=== PATIENT | female | born 1960 | race Caucasian/White ===

== ENCOUNTER → 2017-03-02 | Outpatient (CLI) | payer BC | LOC: KOH-I 11:30 | DX: M25.532 Pain in left wrist (principal); M19.032 Primary osteoarthritis, left wrist | CPT/HCPCS: 73110 ==

== ENCOUNTER → 2020-12-12 | Outpatient (CLI) | payer BC ==
[~2020-12-12] MED LIST: ACIDOPHILUS1 EAC4 PO; BENADRYL PO; CENTRUM SILVER1 EAC1 PO; FISH PO; FLAX PO; HAIR/SKIN/NAIL PO; HYDROCHLOROTH12.5 MG PO; IBUPROFEN800 MG PO; LISINOPRIL5 MG PO; LOVASTATIN20 MG PO; SODIUM FLUORIDE PO; [UNRECOGNIZED DRUG - OTHER] PO
[2020-12-12 05:41] LABS: HEMOGLOBIN 14.5 gm/dl (12.3-15.3); RED BLOOD COUNT 4.89 M/UL (4.00-5.10); WHITE BLOOD COUNT 6.9 K/UL (4.5-11.0)
[2020-12-12 06:06] LABS: BUN/CREATININE RATIO 25 (0-10)
== END ==
LOC: LAB 05:23
DX: R53.83 Other fatigue (principal); I10 Essential (primary) hypertension; E78.2 Mixed hyperlipidemia
CPT/HCPCS: 36415; 80053; 80061; 82607; 84443; 85025; 85027

== ENCOUNTER → 2021-03-18 | Day surgery (SDC) | payer BC | END | disposition home or self-care (01) | LOC: OR 06:16 | DX: Z12.11 Encounter for screening for malignant neoplasm of colon (principal); D12.3 Benign neoplasm of transverse colon; K64.0 First degree hemorrhoids; K64.4 Residual hemorrhoidal skin tags; I10 Essential (primary) hypertension; E66.8 Other obesity; Z86.010 Personal history of colon polyps; Z68.38 Body mass index [BMI] 38.0-38.9, adult; Z79.1 Long term (current) use of non-steroidal anti-inflammatories (NSAID); Z79.899 Other long term (current) drug therapy | CPT/HCPCS: J2704; J7040 ==

== ENCOUNTER → 2021-06-10 | Outpatient (CLI) | payer BC ==
[2021-06-10 05:53] LABS: HEMOGLOBIN 14.5 gm/dl (12.3-15.3); RED BLOOD COUNT 4.86 M/UL (4.00-5.10); WHITE BLOOD COUNT 5.6 K/UL (4.5-11.0)
[2021-06-10 06:20] LABS: BUN/CREATININE RATIO 22 (0-10)
[2021-06-11 07:11] LABS: VITAMIN D, 25-HYDROXY 34.7 ng/mL (30.0-100.0)
[2021-06-11 08:14] LABS: ANTISTREPTOLYSIN O AB 70.6 IU/mL (0.0-200.0); RHEUMATOID ARTHRITIS FACTOR <10.0 IU/mL (0.0-13.9)
== END ==
LOC: LAB 05:36
PROVIDERS: Physician Assistant Medical
DX: E78.2 Mixed hyperlipidemia (principal); I10 Essential (primary) hypertension; M15.0 Primary generalized (osteo)arthritis; M25.50 Pain in unspecified joint; R53.83 Other fatigue
CPT/HCPCS: 80053; 80061; 84550; 85027; 85652; 86038; 86060; 86140; 86431

== ENCOUNTER → 2021-09-17 | Outpatient (CLI) | payer BC | LOC: MAMO 07:40 | DX: Z12.31 Encounter for screening mammogram for malignant neoplasm of breast (principal); N63.24 Unspecified lump in the left breast, lower inner quadrant | CPT/HCPCS: 77063; 77067 ==

== ENCOUNTER → 2021-09-22 | Outpatient (CLI) | payer BC | LOC: US 13:10 | DX: N63.24 Unspecified lump in the left breast, lower inner quadrant (principal) | CPT/HCPCS: 76641-LT ==

== ENCOUNTER → 2021-12-21 | Outpatient (CLI) | payer BC ==
[2021-12-21 06:01] LABS: HEMOGLOBIN 13.9 gm/dl (12.3-15.3); RED BLOOD COUNT 4.71 M/UL (4.00-5.10); WHITE BLOOD COUNT 6.3 K/UL (4.5-11.0)
[2021-12-21 06:33] LABS: BUN/CREATININE RATIO 22 (0-10)
== END ==
LOC: LAB 05:45
PROVIDERS: Physician Assistant Medical
DX: E78.2 Mixed hyperlipidemia (principal); I10 Essential (primary) hypertension; R53.83 Other fatigue; E55.9 Vitamin D deficiency, unspecified
CPT/HCPCS: 36415; 80053; 80061; 82607; 84443; 85027

== ENCOUNTER → 2022-03-24 | Outpatient (CLI) | payer BC | LOC: MAMO 13:32 | DX: N63.24 Unspecified lump in the left breast, lower inner quadrant (principal) | CPT/HCPCS: 76641-LT; 77065; G0279 ==

== ENCOUNTER → 2022-06-17 | Outpatient (CLI) | payer BC ==
[2022-06-17 06:50] LABS: HEMOGLOBIN 13.4 gm/dl (12.3-15.3); RED BLOOD COUNT 4.54 M/UL (4.00-5.10); WHITE BLOOD COUNT 5.5 K/UL (4.5-11.0)
[2022-06-17 07:13] LABS: BUN/CREATININE RATIO 21 (0-10)
== END ==
LOC: LAB 05:43
PROVIDERS: Physician Assistant Medical
DX: E55.9 Vitamin D deficiency, unspecified (principal); E78.5 Hyperlipidemia, unspecified; R53.83 Other fatigue
CPT/HCPCS: 36415; 80053; 80061; 82607; 84443; 85027